=== PATIENT | male | born 1985 | race Two or more races ===

== ENCOUNTER → 2024-12-03 | Outpatient (CLI) | payer BC, SELFPAY ==
[2024-12-03 10:07] LABS: Collection Type, Urine Clean Catch
[2024-12-03 10:35] LABS: Basophils # (Auto) 0.1 Thou/mm3 (0.0-0.2); Basophils % (Auto) 1 % (0-2.5); Eosinophils # (Auto) 0.2 Thou/mm3 (0.0-0.5); Eosinophils % (Auto) 2 % (0-10); Hemoglobin 13.9 g/dL (13.5-16.0); Immature Granulocytes % (Auto) 1 % (0-0); Immature Granulocytes Auto 0.03 Thou/mm3 (0.00-0.00); Lymphocytes # (Auto) 2.4 Thou/mm3 (1.0-4.8); Lymphocytes % (Auto) 38 % (10-50); Mean Corpuscular HGB Conc 32.3 g/dl (31.0-37.0); Mean Corpuscular Hemoglobin 27.5 pg (25.0-35.0); Mean Corpuscular Volume 85 fL (80-100); Monocytes # (Auto) 0.4 Thou/mm3 (0.0-0.8); Monocytes % (Auto) 6 % (0-12); Neutrophils # (Auto) 3.3 Thou/mm3 (1.8-7.7); Neutrophils % (Auto) 52 % (37-80); Nucleated Red Blood Cell % 0 /100 WBC (0); Platelet Count 328 Thou/mm3 (140-440); RDW Standard Deviation 39.6 fL (35.1-43.9); Red Blood Count 5.05 Miln/mm3 (4.50-5.90); White Blood Count 6.3 Thou/mm3 (3.8-10.6)
[2024-12-03 10:38] LABS: Bilirubin,Urine Negative (Negative); Blood,Urine Negative (Negative); Clarity,Urine Clear (Clear/Hazy); Color,Urine Lt-Yellow (Lt Yel-Yel); Culture Indicated,Urine Not Indicated; Glucose, Urine Negative (Negative); Ketones,Urine Negative (Negative); Leukocyte Esterase,Urine Negative (Negative); Nitrite,Urine Negative (Negative); PH,Urine 8.5 (5.0-7.0); Protein,Urine Trace (Neg - Trace); RBC,Urine 2 /hpf (0-3); Specific Gravity,Urine 1.025 (1.001-1.035); Squamous Epithelial Cell,Urine < 1 /hpf (0-5); Urobilinogen,Urine Negative mg/dL (0.0-1.0); WBC,Urine 1 /hpf (0-5)
[2024-12-03 10:45] LABS: Glucose Estimated Average 128 mg/dL (80-131); Hemoglobin A1C 6.1 % Hgb (4.8-6.0)
[2024-12-03 10:50] LABS: Alanine Aminotransferase 31 U/L (10-49); Albumin, Serum 4.3 gm/dL (3.5-5.0); Albumin/Globulin Ratio 1.7 (1.2-2.2); Alkaline Phosphatase 83 U/L (46-116); Anion Gap 8 (7-16); Aspartate Amino Transferase 16 U/L (0-34); BUN/Creatinine Ratio 10 Ratio (12-20); Bilirubin,Total 0.4 mg/dL (0.3-1.2); Blood Urea Nitrogen 9 mg/dL (9-23); Calcium 9.1 mg/dL (8.3-10.6); Calcium (Corrected) 9.1 mg/dL (8.5-10.1); Carbon Dioxide 28.6 mMol/L (20.0-31.0); Cardiac Risk Estimate 6.1 RATIO (4.0-6.7); Chloride 103 mMol/L (98-107); Cholesterol 214 mg/dL (132-200); Creatinine (Component) 0.9 mg/dL (0.6-1.3); Globulin 2.6 gm/dL (2.3-3.5); Glucose 116 mg/dL (74-106); HDL Cholesterol 35 mg/dL (40-60); Osmolality,Calculated 279 (275-295); Potassium 4.2 mMol/L (3.4-5.1); Sodium 140 mMol/L (136-145); Thyroid Stimulating Hormone 0.36 uIU/mL (0.55-4.78); Total Protein 6.9 gm/dL (5.7-8.2); Triglycerides 465 mg/dL (30-150); eGFR > 60 See Note
== END | disposition home or self-care (01) ==
PROVIDERS: PCP Physician Assistant; Referring Provider Physician Assistant; Visit Provider Physician Assistant
DX: R59.9 Enlarged lymph nodes, unspecified (principal)
CPT/HCPCS: 36415; 80053; 80061; 81001; 83036; 84443; 85025

== ENCOUNTER → 2025-01-14 | Outpatient (CLI) | payer BC, SELFPAY ==
--- NOTE | 2025-01-14 14:30 | XR_ITS ---
Examination: Thyroid sonography complete TECHNIQUE: Grayscale sonographic images thyroid lobes Date and time: January 14, 2025 1438 hours INDICATIONS: Diagnosis thyroid toxicosis FINDINGS: Right thyroid 4.3 cm No solid nodules Left thyroid 4.7 cm Midpole 7 x 7 x 8 mm nodule IMPRESSION: Mid pole left thyroid nodule 7 x 7 x 8 mm
--- NOTE | 2025-01-14 15:00 | XR_ITS ---
Examination: Breast ultrasound complete, bilateral Date and time of exam: January 14, 2025 1444 hours INDICATIONS: Diagnosis enlarged lymph nodes, unspecified Technique: Real-time grayscale ultrasonographic imaging bilateral breasts, including all 4 quadrants as well as nipple retroareolar and axillary regions. Findings: Sonographic images right and left breast demonstrated no cystic or solid masses Right axillary enlarged lymph node 4.8 x 1.7 x 1.8 cm Left axillary enlarged lymph node 4.0 x 2.1 cm IMPRESSION: Abnormally enlarged axillary lymph nodes, consider CT chest post intravenous contrast follow-up
== END | disposition home or self-care (01) ==
LOC: CDIM 14:11
PROVIDERS: PCP Physician Assistant; Referring Provider Physician Assistant; Visit Provider Physician Assistant
DX: R59.0 Localized enlarged lymph nodes (principal); E04.1 Nontoxic single thyroid nodule
CPT/HCPCS: 76536; 76641

== ENCOUNTER → 2025-01-14 | Outpatient (CLI) | payer BC, SELFPAY ==
[2025-01-14 10:52] LABS: Free T3 3.5 pg/mL (2.3-4.2); Free T4 (Free Thyroxine) 1.02 ng/dL (0.89-1.76); Thyroid Stimulating Hormone 0.59 uIU/mL (0.55-4.78)
== END | disposition home or self-care (01) ==
LOC: COPL 09:04
PROVIDERS: PCP Physician Assistant; Referring Provider Physician Assistant; Visit Provider Physician Assistant
DX: E05.90 Thyrotoxicosis, unspecified without thyrotoxic crisis or storm (principal)
CPT/HCPCS: 36415; 84439; 84443; 84481

== ENCOUNTER → 2025-02-17 | Outpatient (CLI) | payer BC, SELFPAY ==
--- NOTE | 2025-02-17 11:00 | XR_ITS ---
Examination: CT chest with intravenous contrast CT abdomen with intravenous contrast 2-D coronal and sagittal reconstructions Time of exam: February 17, 2025 1133 hours Comparison February 19, 2022 INDICATIONS: History enlarged lymph nodes, history left hydronephrosis 3 mm distal left ureteral calculus on stone study 2021 CTDI: vol (mGy) : 7.65 DLP: (mGycm): 106 Technique: Multiple axial images of the chest, abdomen with intravenous contrast, 3.0 mm slice thickness. Images obtained post intravenous injection Isovue 370 60 cc. 2-D sagittal and coronal reconstructions. Low dose protocols were performed. One or more of the following dose reduction techniques were used; automated exposure control, adjustment of the mA and/or KV according to patient size, use of iterative reconstruction technique. Findings: No thoracic aortic aneurysm dilatation No pulmonary artery filling defects No pneumonia or pulmonary edema Small calcified granuloma in the right middle lobe Fatty infiltration throughout the liver no focal liver or splenic lesions No gallstones No pancreatic or adrenal mass 2 mm nonobstructing left renal calculus No hydronephrosis or ureteral calculi Aorta normal size No bowel obstruction Normal appendix No diverticulitis IMPRESSION: No pneumonia or pulmonary edema or pleural disease 2 mm nonobstructing left renal calculus, no hydronephrosis or ureteral calculi Normal appendix
== END | disposition home or self-care (01) ==
LOC: CCTX 11:11
PROVIDERS: PCP Family Medicine; Referring Provider Physician Assistant; Visit Provider Physician Assistant
DX: N20.0 Calculus of kidney (principal)
CPT/HCPCS: 71260; 74160; A4649; Q9967

== ENCOUNTER 2025-03-17 08:45 | Outpatient (RCR) | payer BC, SELFPAY ==
--- NOTE | 2025-03-16 08:45 | XR_ITS ---
Examination: Nuclear medicine thyroid uptake and scan Date and time: March 16, 2025 0742 hours INDICATIONS: Diagnosis thyroid toxicosis, fatigue weight loss, ultrasound-guided pole left thyroid nodule TECHNIQUE AND FINDINGS: Oral administration 23 uCi I-[id number] 6 hour uptake 13% normal range 6-24% 24 hour uptake 21.3% normal range 10-36% Homogeneous anterior thyroid scans IMPRESSION: Negative study
== END 2025-03-22 23:59 | disposition home or self-care (01) ==
LOC: SNUC 08:45
PROVIDERS: PCP Physician Assistant; Referring Provider Physician Assistant; Visit Provider Physician Assistant
DX: R59.9 Enlarged lymph nodes, unspecified (principal)
CPT/HCPCS: 78013; A9516